=== PATIENT | female | born 1985 | race Caucasian/White ===

== ENCOUNTER 2017-06-29 19:20 | Emergency (ER) | payer BC ==
[~2017-06-29] VITALS: Ht 162.6 cm; Wt 96.0 kg
[~2017-06-29 19:20] MED LIST: ACET-1311 PO; CETI10TA84 PO; IBUP-1050 PO; NORE1TAB3 PO; NZRSHM; OMEP40CA41 PO; PENI-82 PO; TRAZ50TA35 PO; TRIA0.2580 PO; VENL150C PO; VENL75CA PO
[2017-06-29 19:33] VITALS: TEMP 36.7; Ht 162.6 cm; Wt 96.0 kg
[2017-06-29] MEDS ORDERED: LORAZEPAM 2 MG/ML 1 ML VIAL IV STA (20:47)
[2017-06-29] MEDS ORDERED: SODIUM CHLORIDE 0.9% 1000ML 1,000 ML IV STA (20:51)
[2017-06-29 21:00] LABS: MANUAL MICROSCOPIC REQUIRED? NO; REVIEW REQ? YES; URINE APPEARANCE CLOUDY (CLEAR); URINE BILIRUBIN NEG (NEG); URINE COLOR YELLOW; URINE EPITHELIAL CELL AUTO >30 /lpf (0-5); URINE NITRITE NEG (NEG); URINE PH 5.5 (4.5-7.5); URINE SPECIFIC GRAVITY 1.025 (1.000-1.030); UROBILINOGEN NEG (NEG)
[2017-06-29] MEDS ORDERED: LORAZEPAM 2 MG/ML 1 ML VIAL IM STA (21:01)
--- NOTE | 2017-06-29 21:04 | EMERGENCY ROOM VISIT NOTE ---
History Report prepared by Fred: Liam Cook Under the Supervision of: Dr. Carlos Garcia M.D. First contact with patient: 20:43 Chief Complaint: MENTAL HEALTH EVALUATION Stated Complaint: ANXIETY History of Present Illness The patient is a 32 year old white female with a past medical history of anxiety , GERD, and UTIs who presents to the ED with a cc of worsening anxiety for the past 3 weeks ago. Positive throat pain from acid reflux, increased sleep, more anger, and lack of motivation to do things. Negative SI, HI, hallucinations, alcohol use, tobacco use, or drug use. She states that she has been working a lot of overtime recently. The patient states that she took Ativan earlier, and that helped a little bit. She takes medications, and none of them have changed. She took muscle relaxers and steroids for a back issue which ended 3-4 weeks ago , and she recently was on antibiotics for a UTI. She hasn't had a period in 2 years. Source of History: patient Onset: three weeks Position: other (global) Quality: other (anxiety) Timing: worsening Note: Associated symptoms: throat pain, increased sleep, lack of motivation. Review of Systems See HPI for pertinent positives and negatives. A total of ten systems were reviewed and were otherwise negative. Past Medical & Surgical Medical Problems: (1) Generalized anxiety disorder Family History Cancer Diabetes mellitus FHx: lung disease Seizures Social History Smoking Status: Former Smoker Alcohol Use: occasionally Marital Status: Housing Status: lives with family Occupation Status: employed Current/Historical Medications Scheduled Cetirizine (Zyrtec), 10 MG PO DAILY Ketoconazole (Ketoconazole), 1 APPLN UD Norethin Acet & Estrad-Fe (11/13), 1 TAB PO DAILY Omeprazole (Prilosec), 40 MG PO QPM Penicillin V Potassium (Veetids), 500 MG PO QID Trazodone Hcl (Trazodone), 50 MG PO HS Triazolam (Triazolam), 0.25 MG PO DAILY Venlafaxine Hcl (Effexor Xr), 1 CAP PO DAILY Venlafaxine Hcl (Effexor Xr), 1 CAP PO DAILY Scheduled PRN Acetaminophen (Tylenol), 650 MG PO DIRECTED PRN for Pain or Fever Ibuprofen (Advil), 200-600 MG PO Q4H PRN for Pain or Fever Allergies Coded Allergies: BEE STING (Verified Allergy, Intermediate, PER PT "SITE 'SUPER' ENLARGES" , 08/05/16) Diphenhydramine (Verified Allergy, Intermediate, PER PT "CAUSES PANIC ATTACKS"., 08/05/16) Physical Exam Vital Signs Date Time Temp Pulse Resp B/P (MAP) Pulse Ox O2 Delivery O2 Flow Rate FiO2 06/29/17 22:12 87 18 144/86 98 Room Air 06/29/17 19:33 36.7 138 16 122/67 97 Room Air Physical Exam GENERAL: Awake, alert, Obese, anxious-appearing, NAD HENT: Normocephalic, atraumatic. EYES: Normal conjunctiva. Sclera non-icteric. NECK: Supple. No nuchal rigidity. FROM. RESPIRATORY: CTAB, no rhonchi, wheezing, crackles CARDIAC: Tachycardic with regular rhythm, no MRG ABDOMEN: Soft, NTND, BS+ MSK: No chest wall TTP, no LE edema NEURO: GCS 15, CN 2-12 intact, moves all 4s on command SKIN: No rash or jaundice noted. Medical Decision & Procedures Laboratory Results Test 06/29/17 20:45 Urine Color YELLOW Urine Appearance CLOUDY (CLEAR) Urine pH 5.5 (4.5-7.5) Urine Specific [place] 1.025 (1.000-1.030) Urine Protein NEG (NEG) Urine Glucose (UA) NEG (NEG) Urine Ketones NEG (NEG) Urine Occult Blood NEG (NEG) Urine Nitrite NEG (NEG) Urine Bilirubin NEG (NEG) Urine Urobilinogen NEG (NEG) Urine Leukocyte Esterase SMALL (NEG) Urine WBC (Auto) 10-30 /hpf (0-5) Urine RBC (Auto) 0-4 /hpf (0-4) Urine Hyaline Casts (Auto) 0 /lpf (0-5) Urine Epithelial Cells (Auto) >30 /lpf (0-5) Urine Bacteria (Auto) 1+ (NEG) Urine Pathogenic Casts /lpf (0) Urine Opiates Screen NEG (NEG) Urine Methadone, Qualitative NEG (NEG) Urine Barbiturates NEG (NEG) Urine Phencyclidine (PCP) Level NEG (NEG) Ur Amphetamine/Methamphetamine NEG (NEG) MDMA (Ecstasy) Screen POS (NEG) Urine Benzodiazepines Screen NEG (NEG) Urine Cocaine Metabolite NEG (NEG) Urine Marijuana (THC) NEG (NEG) Laboratory results reviewed by me Medications Administered Medications (Trade) Dose Ordered Sig/Dilma Route Start Time Stop Time Status Last Admin Dose Admin Lorazepam (Ativan Inj) 1 mg NOW STAT IM 06/29/17 21:01 06/29/17 21:04 DC 06/29/17 21:21 1 MG ECG Indication: tachycardia Rate (beats per minute): 108 Rhythm: sinus tachycardia Findings: other (normal intervals, normal axis, no STS changes or TWI) ED Course 2042: The patient was evaluated in room A7. A complete history and physical exam was performed. 2046: Ativan Inj 1mg IV 2050: Sodium Chloride 1000 ml @ 999 mls/hr IV 2100: Ativan Inj 1mg IM 2199: I talked with the bilingual patient support caseworker, and she states that the patient can go home. 2233: I reevaluated the patient. Discussed results and discharge instructions: She verbalized understanding and agreement. The patient is ready for discharge. Medical Decision The patient is a 32 year old white female with a past medical history of anxiety , GERD, and UTIs who presents to the ED with a cc of worsening anxiety for the past 3 weeks ago. Positive throat pain from acid reflux, increased sleep, more anger, and lack of motivation to do things. Negative SI, HI, hallucinations, alcohol use, tobacco use, or drug use. Triage Nursing notes reviewed. The patient's presentation and history were concerning for acute psychosis, stress, anxiety, medication non-compliance. Patient w/o SI or HI and not harm to self or others. Seen by mental health specialist and cleared and deemed not harm to self or others. Given meds. EKG w/ o acute changes. Patient feeling improved and has appropriate follow up. Tachycardia resolved. Patient given f/u, d/c instructions and safely discharged to home. Medication Reconcilliation Current Medication List: was personally reviewed by me Blood Pressure Screening Patient's blood pressure: Elevated blood pressure Blood pressure disposition: Elevated BP felt to be situational Impression Primary Impression: Acute anxiety Scribe Attestation The scribe's documentation has been prepared under my direction and personally reviewed by me in its entirety. I confirm that the note above accurately reflects all work, treatment, procedures, and medical decision making performed by me. Departure Information Dispostion Home / Self-Care Referrals No Doctor, Assigned (PCP) [facility] Patient Instructions [facility] Additional Instructions Please return to the emergency department if you have worsening or recurrent symptoms not amenable to at-home treatment. Please call for a follow-up appointment with her primary care physician. Please take your medications as prescribed. If you have other concerns and/or complaints please feel free to also call your primary care physician's office or return the ED for further evaluation, management, and treatment. You received narcotic or benzodiazepene medication while in the emergency room today. This is an addictive medication that may cause drowziness as well as constipation. Do not drive, operate heavy machinery, or drink alcohol under the influence of this medication. You have been examined and treated today on an emergency basis only. This is not a substitute for, or an effort to provide, complete comprehensive medical care. It is impossible to recognize and treat all injuries or illnesses in a single emergency department visit. It is therefore important that you follow up closely with [facility]. Call as soon as possible for an appointment. Thank you for your time and consideration. I look forward to speaking with you again soon. Please don't hesitate to call us if you have any questions. Work Instructions Return To Work: 1 day
[2017-06-29 22:12] VITALS: BP 144/86; PULSE 87; O2SAT 98
[2017-06-29 22:15] LABS: BENZODIAZEPINE, URINE NEG (NEG); COCAINE,URINE NEG (NEG); PHENCYCLIDINE, URINE NEG (NEG)
== END 2017-06-29 22:49 | disposition home or self-care (01) ==
LOC: C.EDB 19:21 → C.EDA 22:49
DX: F41.9 Anxiety disorder, unspecified (principal); K21.9 Gastro-esophageal reflux disease without esophagitis; Z87.440 Personal history of urinary (tract) infections; Z80.9 Family history of malignant neoplasm, unspecified; Z83.3 Family history of diabetes mellitus; Z83.6 Family history of other diseases of the respiratory system; Z87.891 Personal history of nicotine dependence; Z79.899 Other long term (current) drug therapy

== ENCOUNTER 2017-11-06 15:13 | Emergency (ER) | payer BC ==
[~2017-11-06] VITALS: Ht 162.6 cm; Wt 93.8 kg
[2017-11-06 15:17] VITALS: TEMP 37; Ht 162.6 cm; Wt 93.8 kg
[2017-11-06] MEDS ORDERED: ONDANSETRON INJ 2 MG/ML 2 ML VIAL IV STA (15:35)
[2017-11-06] MEDS ORDERED: SODIUM CHLORIDE 0.9% 1000ML 1,000 ML IV STA (15:35)
--- NOTE | 2017-11-06 16:04 | EMERGENCY ROOM VISIT NOTE ---
History Report prepared by Fred: Anthony Anna Under the Supervision of: Dr. En Vela M.D. First contact with patient: 15:22 Chief Complaint: FLU LIKE SX Stated Complaint: STOMACH FLU History of Present Illness The patient is a 32 year old female who presents to the Emergency Room with complaints of intermittent vomiting that started at 0100. She rates her discomfort as a 5/10 in severity. The patient states that around 0100 she began to experience diarrhea, which she describes as "watery". The patient states that she also began vomiting and reports that she has vomited 6-8 times since. She reports that she has also been experiencing epigastric abdominal pain, joint pain, and back pain. The patient states that she typically takes medication for her history of anxiety, but reports she has been vomiting back up the pills. She states that her anxiety has been worsened due to this. She denies hematemesis, melena, hematochezia, hematuria, a possible , vaginal bleeding, and fevers. The patient states that her family recently had similar symptoms. She denies drinking alcohol, eating abnormal foods, drug use, and a history of abdominal surgeries. Source of History: patient Onset: 0100 Position: other (global) Symptom Intensity: 5/10 Timing: intermittent Associated Symptoms: + nausea, + vomiting, No fevers, No melena, No hematochezia, No urinary symptoms Review of Systems See HPI for pertinent positives and negatives. A total of ten systems were reviewed and were otherwise negative. Past Medical & Surgical Medical Problems: (1) Generalized anxiety disorder Family History Cancer Diabetes mellitus FHx: lung disease Seizures Social History Smoking Status: Never Smoker Alcohol Use: occasionally Marital Status: Housing Status: lives with family Occupation Status: employed Current/Historical Medications Scheduled Ketoconazole (Ketoconazole), 1 APPLN UD Norethin Acet & Estrad-Fe (11/13), 1 TAB PO DAILY Omeprazole (Prilosec), 40 MG PO QPM Ondasetron Odt (Zofran Odt), 4 MG SL Q8 Propranolol (Inderal), 5-10 MG PO BID Trazodone Hcl (Trazodone), 100 MG PO HS Venlafaxine Hcl (Effexor Xr), 1 CAP PO DAILY Venlafaxine Hcl (Effexor Xr), 1 CAP PO DAILY Scheduled PRN Acetaminophen (Tylenol), 650 MG PO DIRECTED PRN for Pain or Fever Ibuprofen (Advil), 200-600 MG PO Q4H PRN for Pain or Fever Loratadine (Claritin), 10 MG PO DAILY PRN for Allergic Reaction Lorazepam (Ativan), 1 MG PO BID PRN for Anxiety Allergies Coded Allergies: BEE STING (Verified Allergy, Intermediate, PER PT "SITE 'SUPER' ENLARGES" , 11/06/17) Diphenhydramine (Verified Allergy, Intermediate, PER PT "CAUSES PANIC ATTACKS"., 11/06/17) Physical Exam Vital Signs Date Time Temp Pulse Resp B/P (MAP) Pulse Ox O2 Delivery O2 Flow Rate FiO2 11/06/17 17:59 112 18 109/82 99 11/06/17 17:29 106 11/06/17 17:22 113 18 117/77 99 Room Air 11/06/17 15:17 37.0 130 20 123/90 97 Room Air Physical Exam GENERAL: Awake, alert, well-appearing, in no distress HENT: Normocephalic, Atraumatic. no hemotympanum bilaterally, jay sign negative bilaterally. Oropharynx unremarkable. EYES: Normal conjunctiva. Sclera non-icteric. PERRL bilaterally. EOMI bilaterally. NECK: Supple. No nuchal rigidity. FROM. No JVD. No C-spine tenderness. RESPIRATORY: Clear to auscultation. No wheezes, rhonchi or rales bilaterally. CARDIAC: Tachycardic, normal rhythm. Extremities warm and well perfused. Equal palpable radial pulses to the bilateral upper extremities. Equal palpable DP pulses to the bilateral lower extremities. ABDOMEN: Soft, non-distended. Tenderness to palpation of epigastric region. No rebound or guarding. No masses. Rovsig Negative. RECTAL: Deferred. MUSCULOSKELETAL: Chest examination reveals no tenderness. The back is symmetrical on inspection without obvious abnormality. There is no CVA tenderness to palpation. No joint edema. LOWER EXTREMITIES: Calves are equal size bilaterally and non-tender. No edema. No discoloration. NEURO: Normal sensorium. No sensory or motor deficits noted. No pronator drift. No facial droop. No dysarthria. SKIN: No rash or jaundice noted. Medical Decision & Procedures ER Provider Diagnostic Interpretation: Radiology results as stated below per my review and radiologist interpretation: ABDOMEN 2VIEW W/PA CHEST RTN CLINICAL HISTORY: vomitting abdominal pain nausea. Vomiting. COMPARISON STUDY: 11/02/2015 FINDINGS: The lungs are clear. Diaphragms are smooth. No evidence for cardiac enlargement. Several air-filled loops of small bowel as well as colon. A mild nonspecific ileus is suggested. There is no evidence for free air. There is no significant pneumatosis. IMPRESSION: 1. Mild nonspecific abdominal ileus. 2. Negative chest. The above report was generated using voice recognition software. It may contain grammatical, syntax or spelling errors. Electronically signed by: Eduardo Parkinson M.D. 11/06/2017 4:53 PM Dictated Date/Time: 11/06/2017 4:53 PM Laboratory Results 11/06/17 16:04 Red Blood Count 5.01, Mean Corpuscular Volume 90.8, Mean Corpuscular Hemoglobin 30.9, Mean Corpuscular Hemoglobin Concent 34.1, Mean Platelet Volume 10.5, Neutrophils (%) (Auto) 75.8, Lymphocytes (%) (Auto) 14.2, Monocytes (%) (Auto) 8.6, Eosinophils (%) (Auto) 0.8, Basophils (%) (Auto) 0.3, Neutrophils # (Auto) 7.24, Lymphocytes # (Auto) 1.36, Monocytes # (Auto) 0.82, Eosinophils # (Auto) 0.08, Basophils # (Auto) 0.03 11/06/17 16:04 Test 11/06/17 15:55 11/06/17 16:04 11/06/17 16:11 11/06/17 17:15 Influenza Type A Antigen Neg for Influ A (NEG) Influenza Type B Antigen Neg for Influ B (NEG) White Blood Count 9.56 K/uL (4.8-10.8) Red Blood Count 5.01 M/uL (4.2-5.4) Hemoglobin 15.5 g/dL (12.0-16.0) Hematocrit 45.5 % (37-47) Mean Corpuscular Volume 90.8 fL (80-100) Mean Corpuscular Hemoglobin 30.9 pg (25-34) Mean Corpuscular Hemoglobin Concent 34.1 g/dl (32-36) Platelet Count 261 K/uL (130-400) Mean Platelet Volume 10.5 fL (7.4-10.4) Neutrophils (%) (Auto) 75.8 % Lymphocytes (%) (Auto) 14.2 % Monocytes (%) (Auto) 8.6 % Eosinophils (%) (Auto) 0.8 % Basophils (%) (Auto) 0.3 % Neutrophils # (Auto) 7.24 K/uL (1.4-6.5) Lymphocytes # (Auto) 1.36 K/uL (1.2-3.4) Monocytes # (Auto) 0.82 K/uL (0.11-0.59) Eosinophils # (Auto) 0.08 K/uL (0-0.5) Basophils # (Auto) 0.03 K/uL (0-0.2) RDW Standard Deviation 43.8 fL (36.4-46.3) RDW Coefficient of Variation 13.5 % (11.5-14.5) Immature Granulocyte % (Auto) 0.3 % Immature Granulocyte # (Auto) 0.03 K/uL (0.00-0.02) Anion Gap 10.0 mmol/L (3-11) Est Creatinine Clear Calc Drug Dose 87.2 ml/min Estimated GFR () 84.1 Estimated GFR (Non- 72.6 BUN/Creatinine Ratio 10.2 (10-20) Calcium Level 9.1 mg/dl (8.5-10.1) Total Bilirubin 0.7 mg/dl (0.2-1) Aspartate Amino Transf (AST/SGOT) 15 U/L (15-37) Alanine Aminotransferase (ALT/SGPT) 28 U/L (12-78) Alkaline Phosphatase 99 U/L (45-117) Total Protein 7.9 gm/dl (6.4-8.2) Albumin 3.5 gm/dl (3.4-5.0) Globulin 4.4 gm/dl (2.5-4.0) Albumin/Globulin Ratio 0.8 (0.9-2) Lipase 160 U/L (73-393) Bedside Lactic Acid Venous 2.34 mmol/L (0.90-1.70) Urine Color DK YELLOW Urine Appearance CLOUDY (CLEAR) Urine pH 5.0 (4.5-7.5) Urine Specific [place] 1.032 (1.000-1.030) Urine Protein NEG (NEG) Urine Glucose (UA) NEG (NEG) Urine Ketones TRACE (NEG) Urine Occult Blood NEG (NEG) Urine Nitrite NEG (NEG) Urine Bilirubin NEG (NEG) Urine Urobilinogen NEG (NEG) Urine Leukocyte Esterase SMALL (NEG) Urine WBC (Auto) 10-30 /hpf (0-5) Urine RBC (Auto) 5-10 /hpf (0-4) Urine Hyaline Casts (Auto) 10-30 /lpf (0-5) Urine Epithelial Cells (Auto) >30 /lpf (0-5) Urine Bacteria (Auto) 1+ (NEG) Urine Test NEG (NEG) Laboratory results reviewed by me Medications Administered Medications (Trade) Dose Ordered Sig/Dilma Route Start Time Stop Time Status Last Admin Dose Admin Sodium Chloride 1,000 ml @ 999 mls/hr Q1H1M STAT IV 11/06/17 15:35 11/06/17 16:35 DC 11/06/17 16:15 999 MLS/HR Ondansetron HCl (Zofran Inj) 4 mg NOW STAT IV 11/06/17 15:35 11/06/17 15:37 DC 11/06/17 16:16 4 MG ED Course 1529: The patient was evaluated in room B08. A complete history and physical exam was performed. 1727: I reevaluated the patient and his vital signs are improved. Serial abdominal exams show no tenderness to palpation. Labs within normal limits with the exception of minimally elevated lactate most likely due to the patient' s vomiting and diarrhea causing dehydration. Urine specimen is contaminated. Patient has no dysuria or hematuria. No urinary symptoms. The patient feels better after Zofran and IV fluids. She is comfortable with going home. Her labs are within normal limits. She is tolerating PO. The patient will be discharged in a stable condition. I discussed the treatment plan and a follow up within 7 days. I discussed the discharge with patient and the family at bedside. They understand and agree to the plan. Medical Decision vital signs are improved. Serial abdominal exams show no tenderness to palpation. Labs within normal limits with the exception of minimally elevated lactate most likely due to the patient's vomiting and diarrhea causing dehydration. Urine specimen is contaminated. Patient has no dysuria or hematuria. No urinary symptoms. The patient feels better after Zofran and IV fluids. She is comfortable with going home. Her labs are within normal limits. She is tolerating PO. The patient will be discharged in a stable condition. I discussed the treatment plan and a follow up within 7 days. I discussed the discharge with patient and the family at bedside. They understand and agree to the plan. Medication Reconcilliation Current Medication List: was personally reviewed by me Blood Pressure Screening Patient's blood pressure: Normal blood pressure Impression Primary Impression: Nausea vomiting and diarrhea Scribe Attestation The scribe's documentation has been prepared under my direction and personally reviewed by me in its entirety. I confirm that the note above accurately reflects all work, treatment, procedures, and medical decision making performed by me. Departure Information Dispostion Home / Self-Care Prescriptions Ondasetron Odt (ZOFRAN ODT) 4 Mg Tab 4 MG SL Q8 for Nausea for 10 Days, #30 TAB Prov: En Vela M.D. 11/06/17 Referrals Hermelinda Dorsey M.D. (PCP) [facility] Patient Instructions ED Diarrhea Viral, ED Nausea Vomiting, My [facility]
[2017-11-06 16:18] LABS: BASO % 0.3 %; BASO ABS # 0.03 K/uL (0-0.2); EOS % 0.8 %; EOS ABS # 0.08 K/uL (0-0.5); HEMATOCRIT 45.5 % (37-47); HEMOGLOBIN 15.5 g/dL (12.0-16.0); IG# 0.03 K/uL (0.00-0.02); LYMPH % 14.2 %; LYMPH ABS # 1.36 K/uL (1.2-3.4); MEAN CELL VOLUME 90.8 fL (80-100); MEAN CORPUSCULAR HEMOGLOBIN 30.9 pg (25-34); MEAN CORPUSCULAR HGB CONC 34.1 g/dl (32-36); MEAN PLATELET VOLUME 10.5 fL (7.4-10.4); MONO % 8.6 %; MONO ABS # 0.82 K/uL (0.11-0.59); NEUT % 75.8 %; NEUT ABS # 7.24 K/uL (1.4-6.5); PLATELET COUNT 261 K/uL (130-400); RED CELL DISTRIBUTION WIDTH CV 13.5 % (11.5-14.5); RED CELL DISTRIBUTION WIDTH SD 43.8 fL (36.4-46.3); WHITE BLOOD COUNT 9.56 K/uL (4.8-10.8)
[2017-11-06] MEDS ORDERED: PROP10TA7 PO (16:22)
[2017-11-06] MEDS ORDERED: TRAZ100T29 PO (16:22)
[2017-11-06] MEDS ORDERED: ATV/1 PO (16:22)
[2017-11-06] MEDS ORDERED: CLR10 PO (16:22)
[2017-11-06 16:33] LABS: INFLUENZA B ANTIGEN Neg for Influ B (NEG)
[2017-11-06 16:43] LABS: ALBUMIN 3.5 gm/dl (3.4-5.0); CALCIUM 9.1 mg/dl (8.5-10.1); CREATININE 1.01 mg/dl (0.60-1.20); POTASSIUM 3.4 mmol/L (3.5-5.1)
[2017-11-06 16:46] LABS: TOTAL PROTEIN 7.9 gm/dl (6.4-8.2)
--- NOTE | 2017-11-06 16:54 | DIAGNOSTIC IMAGING REPORT ---
ABDOMEN 2VIEW W/PA CHEST RTN CLINICAL HISTORY: vomitting abdominal pain nausea. Vomiting. COMPARISON STUDY: 11/02/2015 FINDINGS: The lungs are clear. Diaphragms are smooth. No evidence for cardiac enlargement. Several air-filled loops of small bowel as well as colon. A mild nonspecific ileus is suggested. There is no evidence for free air. There is no significant pneumatosis. IMPRESSION: 1. Mild nonspecific abdominal ileus. 2. Negative chest. The above report was generated using voice recognition software. It may contain grammatical, syntax or spelling errors. Electronically signed by: Eduardo Parkinson M.D. 11/06/2017 4:53 PM Dictated Date/Time: 11/06/2017 4:53 PM
[2017-11-06] MEDS ORDERED: ONDA4TAB10 SL (17:36)
[2017-11-06 17:59] VITALS: BP 109/82; PULSE 112; O2SAT 99
== END 2017-11-06 18:01 | disposition home or self-care (01) ==
LOC: C.EDB 15:14
DX: R11.2 Nausea with vomiting, unspecified (principal); R19.7 Diarrhea, unspecified; F41.1 Generalized anxiety disorder; Z83.3 Family history of diabetes mellitus; Z82.0 Family history of epilepsy and other diseases of the nervous system